=== PATIENT | female | born 1970 | race Caucasian/White ===

== ENCOUNTER 2024-09-06 14:58 | Emergency (ER) | payer BC, OTHER ==
[2024-09-06 17:19] VITALS: RESP 20; O2SAT 98
--- NOTE | 2024-09-06 17:25 | ERPHSYRPT ---
- History of Present Illness Time Seen by Provider: 09/06/24 17:25 Source: patient Exam Limitations: no limitations Patient Subjective Stated Complaint: PT states "I have been vomiting and nauseated and coughing for a couple of days." Triage Nursing Assessment: Pt presented alert and oriented x 3, skin pwd. Pt ambulates with an upright steady gait, able to speak in clear full sentences PT resting comfortably on the bed. Physician History: The patient presents with cough, vomiting, and diarrhea. They mention that their had a mild illness the day before but is currently feeling fine. Symptoms began at approximately 3 AM today, including coughing, vomiting, and diarrhea. The cough and vomiting are particularly bothersome. They have not taken any medication for nausea or vomiting due to uncertainty about what to take. They also describe feeling cold. During the review of symptoms, they report chest pain and trouble breathing, but these occur only when coughing. Timing/Duration: yesterday Cough Quality/Degree: moderate, productive cough Possible Cause: no prior episodes Modifying Factors: Improves With: nothing. Worsens With: coughing, deep breath Associated Symptoms: fever, chills, chest pain/soreness, cough, shortness of breath Allergies/Adverse Reactions: strawberry Allergy (Severe, Verified 09/06/24 16:44) anaphylaxis lisinopril Adverse Reaction (Severe, Verified 09/06/24 16:44) Cough Home Medications: Amlodipine Besylate [Norvasc] 10 mg PO DAILY 09/06/24 [History] Hx Tetanus, Diphtheria Vaccination/Date Given: No Hx Influenza Vaccination/Date Given: No Hx Pneumococcal Vaccination/Date Given: No Immunizations Up to Date: No Travel Risk - International Travel Have you traveled outside of the country in past 3 weeks: No - Emerging Infectious Disease Are you exhibiting symptoms associated with any current EIDs: Yes Symptoms: Cough: New Onset, Vomitting - Review of Systems All Other Systems: Reviewed and Negative - Past Medical History Pertinent Past Medical History: Yes Neurological History: No Pertinent History ENT History: Other Cardiac History: Hypertension Respiratory History: No Pertinent History Endocrine Medical History: No Pertinent History Musculoskeletal History: No Pertinent History GI Medical History: Gallbladder Disease History: No Pertinent History Psycho-Social History: No Pertinent History Female Reproductive Disorders: No Pertinent History Other Medical History: gilberts syndrome - Past Surgical History Past Surgical History: Yes Gastrointestinal: Cholecystectomy Other Surgical History: tubal in 89 - Female History Hx Last Menstrual Period: 08/26/2024 Hx Now: No - Social History Smoking Status: Never smoker Exposure to second hand smoke: No Drug Use: none - Social Determinants of Health Will the patient participate in the screening: Declined to provide - Nursing Vital Signs Nursing Vital Signs: Initial Vital Signs Temperature 97.7 F 09/06/24 16:37 Pulse Rate 99 H 09/06/24 16:37 Respiratory Rate 18 09/06/24 16:37 Blood Pressure 174/89 09/06/24 16:37 O2 Sat by Pulse Oximetry 99 09/06/24 16:37 Pain Scale Pain Intensity 0 - Physical Exam General Appearance: no apparent distress, obese Eye Exam: eyes nml inspection Ears, Nose, Throat Exam: normal ENT inspection Neck Exam: normal inspection, supple, full range of motion Respiratory Exam: airway intact, diminished breath sounds, rhonchi (right), No respiratory distress Cardiovascular Exam: regular rate/rhythm, capillary refill <2 sec, No edema Gastrointestinal/Abdomen Exam: soft, No tenderness, No distention, No mass, No guarding, No rebound Neurologic Exam: alert, oriented x 3, cooperative Skin Exam: normal color, warm, dry, No rash SpO2 Interpretation: normal SpO2: 98 O2 Delivery: Room Air - Course Nursing assessment & vital signs reviewed: Yes - Radiology Exams Chest X-ray Interpretation: Interpreted by me, Pneumonia (right infrahilar) Ordered Tests: Active Orders 24 hr Category Date Time Status CHEST 1 VIEW (PORTABLE) Stat Exams 09/06/24 17:44 Completed CBC W DIFF Stat Lab 09/06/24 18:00 Completed CMP Stat Lab 09/06/24 18:00 Completed Direct Bilirubin Stat Lab 09/06/24 17:20 Completed Medication Summary Discontinued Medications Generic Name Dose Route Start Last Admin Trade Name Freq PRN Reason Stop Dose Admin Amoxicillin 1,000 mg 09/06/24 18:43 09/06/24 18:58 Amoxicillin Trihydrate 500 Mg Capsule PO 09/06/24 18:44 1,000 mg STAT ONE Administration Amoxicillin Confirm 09/06/24 18:57 Amoxicillin Trihydrate 500 Mg Capsule Administered 09/06/24 18:58 Dose 1,000 mg .ROUTE .STK-MED ONE Sodium Chloride 1,000 mls @ 999 mls/hr 09/06/24 17:26 09/06/24 18:55 Sodium Chloride 0.9% 1000 Ml IV 09/06/24 18:26 Infused .Q1H1M STA Infusion Sodium Chloride Confirm 09/06/24 17:41 Sodium Chloride 0.9% 1000 Ml Administered 09/06/24 17:42 Dose 1,000 mls @ ud .ROUTE .STK-MED ONE Ondansetron HCl 8 mg 09/06/24 17:25 09/06/24 17:42 Zofran 4 Mg/Udtablet Orally Disintegrating PO 09/06/24 17:26 8 mg STAT ONE Administration Ondansetron HCl Confirm 09/06/24 17:41 Zofran 4 Mg/Udtablet Orally Disintegrating Administered 09/06/24 17:42 Dose 4 mg .ROUTE .STK-MED ONE Ondansetron HCl Confirm 09/06/24 17:42 Zofran 4 Mg/Udtablet Orally Disintegrating Administered 09/06/24 17:43 Dose 4 mg .ROUTE .STK-MED ONE Prednisone 60 mg 09/06/24 17:25 09/06/24 17:43 Prednisone 20 Mg Tablet PO 09/06/24 17:26 60 mg STAT ONE Administration Prednisone Confirm 09/06/24 17:41 Prednisone 20 Mg Tablet Administered 09/06/24 17:42 Dose 60 mg .ROUTE .STK-MED ONE Lab/Rad Data: Laboratory Result Diagrams 09/06/24 18:00 09/06/24 18:00 Laboratory Results 09/06/24 09/06/24 09/06/24 Range/Units 18:05 18:00 18:00 WBC 7.8 (3.98-10.04) x10^3/uL RBC 4.31 (3.93-5.22) x10^6/uL Hgb 13.1 (11.2-15.7) g/dL Hct 40.4 (34.1-44.9) % MCV 93.7 (79.4-94.8) fL MCH 30.4 (25.6-32.2) pg MCHC 32.4 (32.2-35.5) g/dL RDW 12.2 (11.7-14.4) % Plt Count 256 (182-369) x10^3/uL MPV 9.2 L (9.4-12.3) fL Gran % 87.0 H (34.0-71.1) % Immature Gran % (Auto) 0.1 (0.001-0.429) % Nucleat RBC Rel Count 0.0 (0.00-0.2) % Eos # (Auto) 0.06 (0.04-0.36) x10^3/uL Immature Gran # (Auto) 0.01 (0.001-0.031) x10^3u/L Absolute Lymphs (auto) 0.54 L (1.18-3.74) x10^3/uL Absolute Monos (auto) 0.38 (0.24-0.86) x10^3/uL Absolute Nucleated RBC 0.00 (0.00-0.012) x10^3u/L Lymphocytes % 6.9 L (19.3-51.7) % Monocytes % 4.9 (4.7-12.5) % Eosinophils % 0.8 (0.7-5.8) % Basophils % 0.3 (0.1-1.2) % Absolute Granulocytes 6.79 H (1.56-6.13) x10^3/uL Basophils # 0.02 (0.01-0.08) x10^3/uL Sodium 134 L (135-145) mmol/L Potassium 3.9 (3.5-5.1) mmol/L Chloride 101 (98-107) mmol/L Carbon Dioxide 27 (22-30) mmol/L Anion Gap 9.5 (5-15) MEQ/L BUN 14 (7-17) mg/dL Creatinine 0.70 (0.52-1.04) mg/dL Estimated GFR 104.0 ML/MIN Glucose 113 H (74-106) mg/dL Calcium 8.7 (8.4-10.2) mg/dL Total Bilirubin 2.10 H (0.2-1.3) mg/dL Direct Bilirubin (0.0-0.4) mg/dL AST 60 H (14-36) U/L ALT 83 H (0-35) U/L Alkaline Phosphatase 108 (38-126) U/L Serum Total Protein 6.7 (6.3-8.2) g/dL Albumin 3.9 (3.5-5.0) g/dL Influenza Type A Ag NEGATIVE (NEGATIVE) Influenza Type B Ag NEGATIVE (NEGATIVE) RSV (PCR) NEGATIVE (NEGATIVE) SARS-CoV-2 (PCR) NEGATIVE (NEGATIVE) Slides for Path Review YES 09/06/24 Range/Units 17:20 WBC (3.98-10.04) x10^3/uL RBC (3.93-5.22) x10^6/uL Hgb (11.2-15.7) g/dL Hct (34.1-44.9) % MCV (79.4-94.8) fL MCH (25.6-32.2) pg MCHC (32.2-35.5) g/dL RDW (11.7-14.4) % Plt Count (182-369) x10^3/uL MPV (9.4-12.3) fL Gran % (34.0-71.1) % Immature Gran % (Auto) (0.001-0.429) % Nucleat RBC Rel Count (0.00-0.2) % Eos # (Auto) (0.04-0.36) x10^3/uL Immature Gran # (Auto) (0.001-0.031) x10^3u/L Absolute Lymphs (auto) (1.18-3.74) x10^3/uL Absolute Monos (auto) (0.24-0.86) x10^3/uL Absolute Nucleated RBC (0.00-0.012) x10^3u/L Lymphocytes % (19.3-51.7) % Monocytes % (4.7-12.5) % Eosinophils % (0.7-5.8) % Basophils % (0.1-1.2) % Absolute Granulocytes (1.56-6.13) x10^3/uL Basophils # (0.01-0.08) x10^3/uL Sodium (135-145) mmol/L Potassium (3.5-5.1) mmol/L Chloride (98-107) mmol/L Carbon Dioxide (22-30) mmol/L Anion Gap (5-15) MEQ/L BUN (7-17) mg/dL Creatinine (0.52-1.04) mg/dL Estimated GFR ML/MIN Glucose (74-106) mg/dL Calcium (8.4-10.2) mg/dL Total Bilirubin (0.2-1.3) mg/dL Direct Bilirubin 0.1 (0.0-0.4) mg/dL AST (14-36) U/L ALT (0-35) U/L Alkaline Phosphatase (38-126) U/L Serum Total Protein (6.3-8.2) g/dL Albumin (3.5-5.0) g/dL Influenza Type A Ag (NEGATIVE) Influenza Type B Ag (NEGATIVE) RSV (PCR) (NEGATIVE) SARS-CoV-2 (PCR) (NEGATIVE) Slides for Path Review - Progress Progress: improved Air Movement: good Progress Note: -Overall sick but nontoxic. Presented with N/V/D, shortness of breath and cough. Coarse breath sounds present on the right. Initial chest XRay concerning for pneumonia. No respiratory distress. Labs were overall unremarkable. No high risk comorbidities or features. CURB-65 and PSI low risk. Patient states they feel better after meds. Other etiologies for dyspnea such as PE, ACS, CHF, Dissection, Asthma, COPD were considered but based on exam and findings above, I think it is most likely due to uncomplicated pneumonia. Antibiotics and steroids started here. Stable on RA. Discussed findings at length with patient. Also discussed that there is always a possibility that they may get worse regardless of our treatment decisions. They understood and stated they would like to go home with outpatient treatment and prompt PCP followup within the next 48 hours. Return precautions were extensively discussed and they understand to return for any worsening symptoms or failure to improve. Blood Culture(s) Obtained: No Antibiotics given: Yes Counseled pt/family regarding: lab results, diagnosis, need for follow-up, rad results Medical Desision Making - Diagnostic Testing Diagnostic test were ordered, analyzed, and reviewed by me: Yes Radiological Interpretation: Interpreted by me - Risk of complications The pt has a mod risk of morbidity or mortality based on: Need for prescription drug management - Departure Departure Disposition: Home Clinical Impression: Viral gastroenteritis, Elevated bilirubin, Transaminitis, Pneumonia involving right lung Condition: Good Critical Care Time: No Referrals: NOAH TREVIZO MD [Primary Care Provider] - Follow up/PCP as directed Instructions: Viral gastroenteritis in adults, Pneumonia, Adult (DC) Prescriptions: Amoxicillin 1,000 mg PO TID 7 Days #20 tablet predniSONE [Prednisone] 50 mg PO DAILY 4 Days #4 tablet Ondansetron ODT 4 MG [Zofran Odt 4 mg] 8 mg PO TID PRN 7 Days #21 tab PRN Reason: Nausea/Vomiting
[2024-09-06] MEDS ORDERED: ZOFRAN ODT 4 MG ONE ×2 (17:41→17:42)
[2024-09-06] MEDS ORDERED: Sodium Chloride 0.9% 1000 ML 1,000 ML ONE (17:41)
[2024-09-06] MEDS ORDERED: DELTASONE 20 MG ONE (17:41)
[2024-09-06] MEDS: ZOFRAN ODT 4 MG PO ONE (17:42)
[2024-09-06] MEDS: Sodium Chloride 0.9% 1000 ML 1,000 ML IV STA (17:43)
[2024-09-06] MEDS: DELTASONE 20 MG PO ONE (17:43)
[2024-09-06 18:07] LABS: Absolute Neutrophil Ct (ANC) 6.79 x10^3/uL (1.56-6.13); BASOPHIL % 0.3 % (0.1-1.2); Basophil (Absolute #) 0.02 x10^3/uL (0.01-0.08); Eosinophil % 0.8 % (0.7-5.8); Eosinophil (Absolute #) 0.06 x10^3/uL (0.04-0.36); Hematocrit 40.4 % (34.1-44.9); Hemoglobin 13.1 g/dL (11.2-15.7); IMMATURE GRAN # 0.01 x10^3u/L (0.001-0.031); IMMATURE GRAN % 0.1 % (0.001-0.429); Lymphocyte (Absolute #) 0.54 x10^3/uL (1.18-3.74); Lymphocytes % 6.9 % (19.3-51.7); Mean Cell Volume 93.7 fL (79.4-94.8); Mean Corpuscular Hemoglobin 30.4 pg (25.6-32.2); Mean Corpuscular Hgb Concent. 32.4 g/dL (32.2-35.5); Mean Platelet Volume 9.2 fL (9.4-12.3); Monocyte (Absolute #) 0.38 x10^3/uL (0.24-0.86); Monocytes % 4.9 % (4.7-12.5); Platelet Count 256 x10^3/uL (182-369); Red Blood Count 4.31 x10^6/uL (3.93-5.22); Red Cell Distribution Width 12.2 % (11.7-14.4); White Blood Count 7.8 x10^3/uL (3.98-10.04)
[2024-09-06 18:20] LABS: ALBUMIN 3.9 g/dL (3.5-5.0); ANION GAP 9.5 MEQ/L (5-15); BILIRUBIN,TOTAL 2.1 mg/dL (0.2-1.3); Calcium 8.7 mg/dL (8.4-10.2); Creatinine 1 0.7 mg/dL (0.52-1.04); Potassium 3.9 mmol/L (3.5-5.1); Total Protein 6.7 g/dL (6.3-8.2)
[2024-09-06 18:43] LABS: INFLUENZA A NEGATIVE (NEGATIVE); INFLUENZA B NEGATIVE (NEGATIVE); RESPIRATORY SYNCTIAL VIRUS NEGATIVE (NEGATIVE); SARS-CoV-2 Xpert Express NEGATIVE (NEGATIVE)
[2024-09-06] MEDS ORDERED: AMOXIL 500 MG ONE (18:57)
[2024-09-06] MEDS: AMOXIL 500 MG PO ONE (18:58)
[2024-09-06 19:03] VITALS: BP 158/75; PULSE 86; TEMP 97.5
--- NOTE | 2024-09-06 19:20 | XRAY ---
Indication: Cough. Comparison: None Portable chest slightly underinflated and clear. Heart not enlarged. Bony thorax intact. No acute findings.
[2024-09-06 20:28] LABS: Slide Review 1 YES
== END 2024-09-06 19:12 | disposition home or self-care (01) ==
LOC: ED 14:58
DX: A08.4 Viral intestinal infection, unspecified (principal); J18.9 Pneumonia, unspecified organism; R11.2 Nausea with vomiting, unspecified; R05.9 Cough, unspecified; R19.7 Diarrhea, unspecified; R94.5 Abnormal results of liver function studies; R74.01 Elevation of levels of liver transaminase levels
CPT/HCPCS: 0241U; 36415; 71045; 80053; 82248; 85025; 96360; 99284; Q0162; A9270-GY

== ENCOUNTER 2024-10-04 06:23 | Emergency (ER) | payer BC, OTHER ==
[2024-10-04 06:28] VITALS: RESP 18; TEMP 97.3
--- NOTE | 2024-10-04 07:21 | ERPHSYRPT ---
- History of Present Illness Time Seen by Provider: 10/04/24 07:18 Source: patient, family Exam Limitations: no limitations Patient Subjective Stated Complaint: sore throat, hurts to swallow Triage Nursing Assessment: Pt ambulated into ER without diff, spouse at bedside. Pt c/o sore throat, more sore on the left side. Throat is red, more red on the left side. Pt states, "It feels like I have a hard time swallowing and thats when it hurts". Pt is currently being treated for a right ear infection. Physician History: Pt c/o sore throat, more sore on the left side. Throat is red, more red on the left side. Pt states, "It feels like I have a hard time swallowing and thats when it hurts". Pt is currently being treated for a right ear infection. Timing/Duration: day(s) (3-4 days) Cough Quality/Degree: no cough Possible Cause: no prior episodes Associated Symptoms: earache, sore throat Allergies/Adverse Reactions: strawberry Allergy (Severe, Verified 10/04/24 06:37) anaphylaxis lisinopril Adverse Reaction (Severe, Verified 10/04/24 06:37) Cough Home Medications: Amlodipine Besylate [Norvasc] 10 mg PO DAILY 09/06/24 [History] Fluticasone Propionate 2 sprays IH BID 10/04/24 [History] Smz/Tmp Ds Tablet [Bactrim Ds Tablet] 1 tab PO BID 10/04/24 [History] Hx Tetanus, Diphtheria Vaccination/Date Given: Yes Hx Influenza Vaccination/Date Given: No Hx Pneumococcal Vaccination/Date Given: No Travel Risk - International Travel Have you traveled outside of the country in past 3 weeks: No - Emerging Infectious Disease Are you exhibiting symptoms associated with any current EIDs: No Symptoms: Cough: New Onset, Vomitting - Review of Systems Constitutional: No Fever, No Chills Eyes: No Symptoms Ears, Nose, & Throat: Throat Pain, Painful Swallowing Respiratory: No Cough, No Dyspnea Cardiac: No Chest Pain, No Edema, No Syncope Abdominal/Gastrointestinal: No Abdominal Pain, No Nausea, No Vomiting, No Diarrhea Genitourinary Symptoms: No Dysuria Musculoskeletal: No Back Pain, No Neck Pain Skin: No Rash Neurological: No Dizziness, No Focal Weakness, No Sensory Changes Psychological: No Symptoms Endocrine: No Symptoms All Other Systems: Reviewed and Negative - Past Medical History Pertinent Past Medical History: Yes Neurological History: No Pertinent History ENT History: Other Cardiac History: Hypertension Respiratory History: No Pertinent History Endocrine Medical History: No Pertinent History Musculoskeletal History: No Pertinent History GI Medical History: Gallbladder Disease History: No Pertinent History Psycho-Social History: No Pertinent History Female Reproductive Disorders: No Pertinent History Other Medical History: gilberts syndrome - Past Surgical History Past Surgical History: Yes Gastrointestinal: Cholecystectomy Female Surgical History: Dilation & Curettage Other Surgical History: tubal in 89 - Female History Hx Last Menstrual Period: 08/23/24 Hx Now: No - Social History Smoking Status: Never smoker Exposure to second hand smoke: No Drug Use: none - Social Determinants of Health Will the patient participate in the screening: Yes Do you worry about a steady place to live?: No Do you have any problems with any of the following?: No known problems In the past 12 months,have you had to go without utilities?: No Transportation Issues: No Has anyone in your support network made you feel unsafe?: No Have you or anyone in your house had to go without enough: No - Nursing Vital Signs Nursing Vital Signs: Initial Vital Signs Temperature 97.3 F 10/04/24 06:27 Pulse Rate 96 H 10/04/24 06:27 Respiratory Rate 18 10/04/24 06:27 Blood Pressure 171/106 10/04/24 06:27 O2 Sat by Pulse Oximetry 97 10/04/24 06:27 Pain Scale Pain Intensity 5 - Physical Exam General Appearance: no apparent distress, alert Eye Exam: PERRL/EOMI, eyes nml inspection Ears, Nose, Throat Exam: normal ENT inspection, TMs normal, pharynx normal, moist mucous membranes, pharyngeal erythema Neck Exam: normal inspection, non-tender, supple, full range of motion Respiratory Exam: normal breath sounds, lungs clear, No respiratory distress Cardiovascular Exam: regular rate/rhythm, normal heart sounds Gastrointestinal/Abdomen Exam: soft, No tenderness Back Exam: normal inspection, No CVA tenderness, No vertebral tenderness Extremity Exam: normal inspection, normal range of motion Neurologic Exam: alert, oriented x 3, cooperative, normal mood/affect, sensation nml, No motor deficits Skin Exam: normal color, warm, dry, No rash Lymphatic Exam: No adenopathy SpO2: 97 - Course Nursing assessment & vital signs reviewed: Yes Ordered Tests: Medication Summary Generic Name Dose Route Start Last Admin Trade Name Bonita PRN Reason Stop Dose Admin Methylprednisolone Sodium 0 mg 10/04/24 07:23 Succinate 125 mg/ Sterile IM 10/04/24 07:24 Water 2 ml STAT ONE Lab/Rad Data: Laboratory Results 10/04/24 Range/Units 06:36 Group A Strep Antibody NOT DETECTED (NEGATIVE) - Progress Progress: unchanged Counseled pt/family regarding: lab results, diagnosis, need for follow-up Medical Desision Making - Independent Historian Additional History obtained from: Spouse - Diagnostic Testing Diagnostic test were ordered, analyzed, and reviewed by me: Yes - Risk of complications Minimal Risk: Minimal risk of morbidity - Departure Departure Disposition: Home Clinical Impression: Acute viral pharyngitis Condition: Stable Critical Care Time: No Referrals: ANTON SCHMID [Primary Care Provider] - Follow up/PCP as directed Instructions: Sore Throat, Adult (DC), Viral Pharyngitis (DC) Additional Instructions: Discharge/Care Plan PATRICIA DELACRUZ was seen on 10/04/24 in the Emergency Room. The patient was counseled regarding Diagnosis,Lab results, Imaging studies, need for follow up and when to return to the Emergency Room. Prescriptions given: Discharge Note I have spoken with the patient and/or caregivers. I have explained the patient's condition, diagnosis and treatment plan based on the information available to me at this time. I have answered the patient's and/or caregiver's questions and addressed any concerns. The patient and/or caregivers have as good understanding of the patient's diagnosis, condition and treatment plan as can be expected at this point. The vital signs have been stable. The patient's condition is stable and appropriate for discharge from the emergency department. The patient will pursue further outpatient evaluation with the primary care physician or other designated or consulting physician as outlined in the discharge instructions. The patient and/or caregivers are agreeable to this plan of care and follow-up instructions have been explained in detail. The patient and/or caregivers have received these instruction. The patient/and or caregivers are aware that any significant change in condition or worsening of symptoms should prompt an immediate return to this or the closest emergency department or call 911. PATRICIA DELACRUZ was seen on 10/04/24 n the Emergency Room. At that time you were treated for an emergent condition, during your visit Laboratory, Radiology and/or other procedures may have been ordered. It is very important that you follow-up with your Primary Care Physician ANTON SCHMID within the next 24-48 hours to review your Emergency Room visit and the final results of testing that was ordered. Some test results such as Urine Cultures, Blood Cultures, and other cultures if ordered will not be finalized for 24-48 hours. If you do not have a Primary Care Provider please call the medical records department at [phone] ext [phone] to obtain a copy of your results or you may sign into our patient portal to obtain these results by visiting us @ [email or web address] and completing the following steps: 1. Click on the Patient Portal link 2. Click the Patient Self Enrollment Link to complete the enrollment form and entering your 3. Once the enrollment form is completed you will receive an email with a temporary ID and password at the email address you provided. 4. Next choose a user name and password. Your user name must be at least 4 characters long and your password must be at least 4 characters long. 5. Choose a security question from the list and provide your answer to the question. If you already have signed into the Health Portal you may access your Health Care Information 01/04 by the following steps: 1. Login to our website @ [email or web address] 2. Enter your original user name and password. FAQS The [facility] Health Portal is an online tool that contains your Lab Results, Radiology Reports, Visit History, Discharge Instructions and Health Summary Lab and Radiology Results will not be available for 72 hours on the portal. The Portal is a secure site, passwords are encryted and URLs are re-written so they cannot be copied and pasted. You and authorized family members are the only ones who can access your Portal. Also there is a timeout feature that protects your information if you leave the Portal page open. If you have technical difficulty please use the Contact Us link on the page this will allow you to submit any questions you have regarding the Portal or you may contact the Medical Record Department at [phone]. Prescriptions: Methylprednisolone Packet [Medrol Dosepack] 4 mg PO UD #21 packet
[2024-10-04] MEDS ORDERED: Sterile H2O 10 ml IJ ONE (07:25)
[2024-10-04] MEDS ORDERED: solu-MEDROL ONE (07:25)
[2024-10-04] MEDS: solu-MEDROL 125 MG, Sterile H2O 10 ml 2 ML IM ONE (07:25)
[2024-10-04 07:35] VITALS: BP 160/98; PULSE 90; O2SAT 98
== END 2024-10-04 07:35 | disposition home or self-care (01) ==
LOC: ED 06:23
DX: J02.9 Acute pharyngitis, unspecified (principal); I10 Essential (primary) hypertension; Z79.52 Long term (current) use of systemic steroids; Z79.899 Other long term (current) drug therapy
CPT/HCPCS: 87651; 96372; 99283; J2919